=== PATIENT | male | born 1940 | race Asian ===

== ENCOUNTER 2017-01-16 05:41 | Day surgery (SDC) | payer MEDICAID ==
[~2017-01-16] VITALS: Ht 167.6 cm; Wt 68.2 kg
[~2017-01-16 05:41] MED LIST: RINGERS SOLUTION,LACTATED 500 ML IV ONE
[2017-01-16] MEDS ORDERED: LIDOCAINE HCL/PF 1% 2 ML VIAL IM ONE (05:42)
[2017-01-16] MEDS ORDERED: MIDAZOLAM HCL 2 MG/2 ML VIAL IVP ONE (05:42)
[2017-01-16] MEDS ORDERED: HYALURONATE SOD/CHONDROITIN SOD 0.5 ML VIAL IO ONE (05:42)
[2017-01-16] MEDS ORDERED: EPINEPHrine 1:1,000 [1 MG/ML] AMP IM ONE (05:42)
[2017-01-16] MEDS ORDERED: TETRACAINE HCL VISCOUS 0.5% 5 ML OPHTHALMIC SOLUTION OS ONE (05:42)
[2017-01-16] MEDS ORDERED: HYALURONATE SODIUM 12 MG/ML 0.8 ML SYRINGE IO ONE (05:42)
[2017-01-16] MEDS ORDERED: POVIDONE-IODINE 10% 15 ML SOLUTION UD TP ONE (05:42)
[2017-01-16] MEDS ORDERED: BRIMONIDINE TARTRATE 0.15% 5 ML OPHTHALMIC SOLUTION OS ONE (05:42)
[2017-01-16] MEDS ORDERED: CYCLOPENTOLATE HCL 2% 2 ML OPHTHALMIC SOLUTION ONE (05:43)
[2017-01-16] MEDS ORDERED: DICLOFENAC SODIUM 0.1% 2.5 ML OPHTHALMIC SOLUTION ONE (05:43)
[2017-01-16] MEDS ORDERED: PHENYLEPHRINE HCL 2.5% 2 ML OPHTHALMIC SOLUTION ONE (05:44)
[2017-01-16] MEDS ORDERED: RINGERS SOLUTION,LACTATED 500 ML IV ONE (05:44)
[2017-01-16] MEDS ORDERED: TETRACAINE HCL/PF 0.5% 4 ML OPHTHALMIC SOLUTION ONE (05:44)
[2017-01-16] MEDS ORDERED: MOXIFLOXACIN HCL 0.5% 3 ML OPHTHALMIC SOLUTION ONE (05:44)
[2017-01-16] MEDS ORDERED: AMLO-512 PO (06:12)
[2017-01-16] MEDS ORDERED: LEVO25TA9 PO (06:12)
[2017-01-16] MEDS ORDERED: ASPI-989 PO (06:12)
[2017-01-16] MEDS ORDERED: ALLO300 PO (06:12)
[2017-01-16] MEDS ORDERED: DOXA2TAB PO (06:12)
[2017-01-16] MEDS ORDERED: FENO48TA15 PO (06:12)
[2017-01-16] MEDS ORDERED: ESCI10TA PO (06:12)
[2017-01-16] MEDS ORDERED: ATOR40TA28 PO (06:12)
[2017-01-16] MEDS ORDERED: METO25 PO (06:12)
[2017-01-16] MEDS: MOXIFLOXACIN HCL 0.5% 3 ML OPHTHALMIC SOLUTION OS SCH ×3 (06:37→06:54)
[2017-01-16] MEDS: PHENYLEPHRINE HCL 2.5% 2 ML OPHTHALMIC SOLUTION OS SCH ×3 (06:37→06:49)
[2017-01-16] MEDS: CYCLOPENTOLATE HCL 2% 2 ML OPHTHALMIC SOLUTION OS SCH ×3 (06:37→06:49)
[2017-01-16] MEDS: DICLOFENAC SODIUM 0.1% 2.5 ML OPHTHALMIC SOLUTION OS SCH ×3 (06:38→06:54)
[2017-01-16] MEDS ORDERED: TETRACAINE HCL/PF 0.5% 4 ML OPHTHALMIC SOLUTION OS ONE (07:00)
[2017-01-16] MEDS ORDERED: AcetaZOLAMIDE 250 MG TABLET PO ONE (07:00)
[2017-01-16] MEDS ORDERED: ACETAMINOPHEN/CODEINE 300-30 MG TABLET PO PRN (07:00)
[2017-01-16] MEDS ORDERED: AcetaZOLAMIDE 250 MG TABLET ONE (08:06)
== END 2017-01-16 08:35 | disposition home or self-care (01) ==
LOC: EDSEX 05:41 → SURGERY 05:41
PROVIDERS: ATTEND Ophthalmology
DX: H25.812 Combined forms of age-related cataract, left eye (principal); H40.9 Unspecified glaucoma; I10 Essential (primary) hypertension; M10.9 Gout, unspecified; F32.9 Major depressive disorder, single episode, unspecified; Z98.890 Other specified postprocedural states; Z95.1 Presence of aortocoronary bypass graft
CPT/HCPCS: 66984; 93005; C1780; J0171; J2250; J3490 ×2; J7120